=== PATIENT | male | born 1985 | race Caucasian/White ===

== ENCOUNTER 2018-01-19 14:28 | Emergency (ER) | payer OTHER ==
[~2018-01-19] VITALS: Ht 180.3 cm; Wt 102.4 kg
[~2018-01-19 14:28] MED LIST: ALBUAER2 INH; CLR10 PO
[2018-01-19 14:31] VITALS: TEMP 36.6; Ht 180.3 cm; Wt 102.4 kg
[2018-01-19] MEDS ORDERED: PRVHFAIN INH (14:46)
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
[2018-01-19] MEDS ORDERED: OXYCODONE HCL IR 5 MG TAB (IMMEDIATE RELEASE) PO STA (16:52)
[2018-01-19] MEDS ORDERED: OXYC1TAB3 PO (17:25)
[2018-01-19] MEDS ORDERED: OXYCODONE IR HOME PACK PO ONE (17:30)
[2018-01-19 17:43] VITALS: BP 140/83; PULSE 96; O2SAT 97
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
== END 2018-01-19 18:25 | disposition home or self-care (01) ==
LOC: EDBD 14:28 → C.EDB 14:29
DX: S82.142A Displaced bicondylar fracture of left tibia, initial encounter for closed fracture (principal); S92.405A Nondisplaced unspecified fracture of left great toe, initial encounter for closed fracture; V28.4XXA Motorcycle driver injured in noncollision transport accident in traffic accident, initial encounter; Y93.89 Activity, other specified; Y99.8 Other external cause status; Y92.488 Other paved roadways as the place of occurrence of the external cause; F17.200 Nicotine dependence, unspecified, uncomplicated; Z98.890 Other specified postprocedural states; Z88.2 Allergy status to sulfonamides